=== PATIENT | male | born 2000 | race Caucasian/White ===

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

== ENCOUNTER 2018-01-07 20:44 | Emergency (ER) | payer OTHER ==
[~2018-01-07] VITALS: Ht 172.7 cm; Wt 77.1 kg
[2018-01-07 20:46] VITALS: BP 137/68
[2018-01-07] MEDS ORDERED: PREDNISONE20 M1 PO (20:55)
[2018-01-07] MEDS ORDERED: BENADRYL25 M2 PO (20:55)
== END 2018-01-07 21:40 | disposition home or self-care (01) ==
LOC: ED 20:44
DX: T78.40XA Allergy, unspecified, initial encounter (principal); Z88.1 Allergy status to other antibiotic agents; X58.XXXA Exposure to other specified factors, initial encounter

== ENCOUNTER 2023-09-15 21:11 | Emergency (ER) | payer OTHER ==
[~2023-09-15] VITALS: Ht 170.1 cm; Wt 79.4 kg
[~2023-09-15 21:11] MED LIST changes: +BENADRYL25 M2 PO; +PREDNISONE20 M1 PO
[2023-09-15 21:27] VITALS: BP 119/54
[2023-09-15] MEDS ORDERED: IOHEXOL 300 MG/ML 100 ML VIAL IV ONE (21:40)
[2023-09-15 22:15] LABS: BASO % 0.4 % (0.0-1.0); EOS # 0.2 10*3/uL (0.0-0.4); EOS % 2.5 % (1.0-4.0); HEMATOCRIT 43.3 % (42.0-52.0); LYMPH # 2.2 10*3/uL (1.3-4.4); LYMPH % 32.2 % (27.0-41.0); MEAN CELL VOLUME 90.2 fl (80.0-94.0); MEAN CORPUSCULAR HGB 30.8 pg (27.0-31.0); MEAN CORPUSCULAR HGB CONC 34.2 g/dl (33.0-37.0); MONO # 0.5 10*3/uL (0.1-1.0); MONO % 7.5 % (3.0-9.0); NEUT # 3.9 10*3/uL (2.3-7.9); NEUT % 57.1 % (47.0-73.0); PLATELET COUNT AUTOMATED 230 10*3/uL (130-400); RED CELL DISTRI WIDTH 11.6 % (0-14.5); WHITE BLOOD COUNT 6.8 10*3/uL (4.8-10.8)
[2023-09-15 22:32] LABS: ALKALINE PHOSPHATASE 55 U/L (46-116); BUN 11 mg/dl (9-23); CHLORIDE 102 mmol/L (98-107); LIPASE 30 U/L (12-53); POTASSIUM 3.9 mmol/L (3.4-5.1); SGPT/ALT 48 U/L (5-49); TOTAL PROTEIN 7.1 gm/dL (6.0-8.0)
[2023-09-15] MEDS ORDERED: Ketorolac Tromethamine 15 MG/ML VIAL IV ONE (23:10)
== END 2023-09-15 23:44 | disposition left against medical advice (07) ==
LOC: ED 21:11
PROVIDERS: Nurse Practitioner
DX: R07.89 Other chest pain (principal); J45.909 Unspecified asthma, uncomplicated; Z88.2 Allergy status to sulfonamides; Z88.8 Allergy status to other drugs, medicaments and biological substances; V89.2XXA Person injured in unspecified motor-vehicle accident, traffic, initial encounter; Y93.89 Activity, other specified; Y92.410 Unspecified street and highway as the place of occurrence of the external cause; Y99.8 Other external cause status